=== PATIENT | female | born 1980 | race African-American/Black ===

== ENCOUNTER 2019-08-29 16:07 | Emergency (ER) | payer SELFPAY ==
[2019-08-29] MEDS ORDERED: METOCLOPRAMIDE HCL INJ/PF 10 MG/2 ML SDV IV ONE ×2 (16:46→22:04)
[2019-08-29] MEDS ORDERED: NORMAL SALINE 1000 ML 1,000 ML IV ONE (16:49)
--- NOTE | 2019-08-29 16:49 | ER Document Report ---
ED Medical Screen (RME) - General Chief Complaint: Sickle Cell Crisis Stated Complaint: SICKLE CELL CRISIS Time Seen by Provider: 08/29/19 16:40 Mode of Arrival: Wheelchair Information source: Patient Notes: 39-year-old female with history of sickle cell reports emergency department with complaints of body aches nausea vomiting diarrhea chest pain left-sided flank pain hematuria for the last 3 days. Reports she just moved here from [place]. Patient does not have a primary care provider here in [place]. Reports last sickle cell crisis was last year. Patient reports that she is very difficult to obtain labs from. Does not have a port because she has so many blood infections. Patient is allergic to Zofran. I have greeted and performed a rapid initial assessment of this patient. A comprehensive ED assessment and evaluation of the patient, analysis of test results and completion of the medical decision making process will be conducted by additional ED providers. Dictation of this chart was performed using voice recognition software; therefore, there may be some unintended grammatical errors. - Related Data Allergies/Adverse Reactions: amoxicillin Allergy (Verified 08/29/19 16:40) NSAIDS (Non-Steroidal Anti-Inflamma Allergy (Verified 08/29/19 16:40) ondansetron [From Zofran] Allergy (Verified 08/29/19 16:40) Penicillins Allergy (Verified 08/29/19 16:40) Physical Exam - Vital signs Vitals: Temp Pulse Resp BP Pulse Ox 98.2 F 108 H 22 H 142/99 H 100 08/29/19 16:21 08/29/19 16:21 08/29/19 16:21 08/29/19 16:21 08/29/19 16:21 Course - Vital Signs Vital signs: Temp Pulse Resp BP Pulse Ox 98.2 F 108 H 22 H 142/99 H 100 08/29/19 16:21 08/29/19 16:21 08/29/19 16:21 08/29/19 16:21 08/29/19 16:21
--- NOTE | 2019-08-29 17:17 | RADIOLOGY REPORT (SQ) ---
EXAM DESCRIPTION: CHEST 2 VIEWS COMPLETED DATE/TIME: 08/29/2019 5:08 pm REASON FOR STUDY: chest pain COMPARISON: None. EXAM PARAMETERS: NUMBER OF VIEWS: two views TECHNIQUE: Digital Frontal and Lateral radiographic views of the chest acquired. RADIATION DOSE: NA LIMITATIONS: none FINDINGS: LUNGS AND PLEURA: No opacities, masses or pneumothorax. No pleural effusion. MEDIASTINUM AND HILAR STRUCTURES: No masses or contour abnormalities. HEART AND VASCULAR STRUCTURES: Heart normal size. No evidence for failure. BONES: No acute findings. HARDWARE: None in the chest. OTHER: No other significant finding. IMPRESSION: NO ACUTE RADIOGRAPHIC FINDING IN THE CHEST. TECHNICAL DOCUMENTATION: JOB ID: [id number] [employer]- All Rights Reserved Reading location - IP/workstation name: [email or web address]
--- NOTE | 2019-08-29 19:02 | EKG REPORT ---
SEVERITY:- ABNORMAL ECG - SINUS TACHYCARDIA PROBABLE LEFT ATRIAL ABNORMALITY LEFT VENTRICULAR HYPERTROPHY : Confirmed by: Bruce Villar MD 29-Aug-2019 19:01:49
--- NOTE | 2019-08-29 20:16 | ER Document Report ---
ED General Pain - General Chief Complaint: Abdominal Pain Stated Complaint: SICKLE CELL CRISIS Time Seen by Provider: 08/29/19 20:16 Mode of Arrival: Wheelchair Information source: Patient Notes: HISTORY OF PRESENT ILLNESS: Patient is a 39-year-old female with a past medical history of sickle cell disease who presents with abdominal pain as well as full body pain and sickle cell crisis that began last week. Patient reports her abdominal pain is throughout the mid and lower abdomen, somewhat worse on the left side versus right, does report that she had some loose stools earlier today. She also reports that her diffuse body aches and pains are identical to her previous sickle cell disease. She denies chest pain or shortness of breath, no fevers or chills, no cough or congestion. Of note, the patient reports that she takes hydrocodone at home for pain control. Location: Mid and lower abdomen Onset: Last week Alleviation: None Provocation: Movement Quality: Aching, cramping Radiation: Generalized Severity: Severe at worst Timing: Constant History of abdominal surgery: Appendectomy Associated symptoms: None Last bowel movement: Today and looser than normal REVIEW OF SYSTEMS: CONSTITUTIONAL : Denies fever or chills, no sweats. Denies recent illness. EENT: Denies eye, ear, throat, or mouth pain or symptoms. Denies nasal or sinus congestion. CARDIOVASCULAR: Denies chest pain. Denies swelling of the legs. RESPIRATORY: Denies cough, cold, or chest congestion. Denies shortness of breath or difficulty breathing. Denies wheezing. GASTROINTESTINAL: Positive for abdominal pain. Positive for nausea and vomiting but no diarrhea. Denies constipation. GENITOURINARY: Denies difficulty urinating, painful urination, burning, frequency, or blood in urine. FEMALE GENITOURINARY: Denies vaginal bleeding, abnormal or irregular periods. MUSCULOSKELETAL: Positive for diffuse and generalized body aches and pains. SKIN: Denies rash or skin lesions. HEMATOLOGIC : Denies easy bruising or bleeding. LYMPHATIC: Denies swollen, enlarged glands. NEUROLOGICAL: Denies altered mental status or loss of consciousness. Denies headache. Denies weakness or paralysis or loss of use of either side. Denies problems with gait or speech. Denies sensory or motor loss. PSYCHIATRIC: Denies anxiety or stress or depression. All other systems reviewed and negative. PHYSICAL EXAMINATION: GENERAL: Obese, uncomfortable-appearing, well-nourished and in mild acute distress. HEAD: Atraumatic, normocephalic. No scalp deformity, depression, or crepitance. EYES: Pupils are 3 mm and equal/round/reactive to light, extraocular movements intact, sclera anicteric, conjunctiva are normal. ENT: Nares patent bilaterally, oropharynx. Moist mucous membranes. No tonsil hypertrophy. NECK: Normal range of motion, supple without lymphadenopathy. LUNGS: Breath sounds present, equal, and clear to auscultation bilaterally. No wheezes, rales, or rhonchi. HEART: Tachycardia, normal rhythm without murmurs, rubs, or gallops. 2+ peripheral pulses. Normal capillary refill. ABDOMEN: Soft, moderate diffuse tenderness, nondistended. Normoactive bowel sounds. No guarding, no rebound. No masses appreciated. BACK: Normal contour, no midline tenderness. Rectal exam deferred. GENITAL/PELVIC: Deferred. EXTREMITIES: Normal range of motion, no pitting or edema. No cyanosis. NEUROLOGICAL: No focal neurological deficits. Moves all extremities spontaneously and on command. PSYCH: Upset appearing with anxious mood, normal affect. No suicidal thoughts/ideations. No homicidal thoughts/ideations. No hallucinations. SKIN: Warm, dry, normal turgor, no rashes or lesions noted. ASSESSMENT AND PLAN: This patient is a 39-year-old female who presents with abdominal pain and generalized sickle cell pain crisis. Patient is in mild distress from pain with stable vital signs. Concern for gastritis versus colitis versus gastroenteritis versus sickle cell pain crisis. 1. Will obtain labs, urine, reticulocyte count, CT scan of the abdomen/pelvis, and drug screen. 2. Will give IV fluids with morphine and Reglan and reassess. TRAVEL OUTSIDE OF THE U[place] IN LAST 30 DAYS: No - HPI Onset: Last week Onset/Duration: Gradual Quality of pain: Achy, Cramping, Stabbing Severity: Severe Pain Level: 5 Context: Chronic problem Typical of prior episodes of painful crisis: Yes Genotype: unknown Associated symptoms: Chills, Sweating, Muscle aches Exacerbated by: Movement, Walking Relieved by: Denies Similar symptoms previously: Yes Recently seen / treated by doctor: No - Related Data Allergies/Adverse Reactions: amoxicillin Allergy (Verified 08/29/19 16:40) NSAIDS (Non-Steroidal Anti-Inflamma Allergy (Verified 08/29/19 16:40) ondansetron [From Zofran] Allergy (Verified 08/29/19 16:40) Penicillins Allergy (Verified 08/29/19 16:40) Home Medications: hydroxyuria, iron, vitamin b 12, hydrocodone, xanax, ambien, metoprolol Past Medical History - General Information source: Patient - Social History Smoking Status: Never Smoker Chew tobacco use (# tins/day): No Frequency of alcohol use: Occasional Drug Abuse: None Lives with: Family Family History: Reviewed & Not Pertinent Patient has suicidal ideation: No Patient has homicidal ideation: No - Past Medical History Cardiac Medical History: Reports: None Pulmonary Medical History: Reports: None EENT Medical History: Reports: None Neurological Medical History: Reports: None Endocrine Medical History: Reports: None Renal/ Medical History: Reports: None Malignancy Medical History: Reports: None GI Medical History: Reports: None Musculoskeletal Medical History: Reports None Skin Medical History: Reports None Psychiatric Medical History: Reports: None Traumatic Medical History: Reports: None Infectious Medical History: Reports: None Surgical Hx: Negative Past Surgical History: Reports: None Review of Systems - Review of Systems Constitutional: See HPI, Chills, Malaise, Weakness EENT: No symptoms reported Cardiovascular: No symptoms reported Respiratory: No symptoms reported Gastrointestinal: See HPI, Abdominal pain, Nausea, Vomiting Genitourinary: No symptoms reported Female Genitourinary: No symptoms reported Musculoskeletal: See HPI, Back pain, Joint pain, Muscle pain Skin: No symptoms reported Hematologic/Lymphatic: No symptoms reported Neurological/Psychological: No symptoms reported -: Yes All other systems reviewed and negative Physical Exam - Vital signs Vitals: Temp Pulse Resp BP Pulse Ox 98.2 F 108 H 22 H 142/99 H 100 08/29/19 16:21 08/29/19 16:21 08/29/19 16:21 08/29/19 16:21 08/29/19 16:21 Interpretation: Normal, Tachycardic - General General appearance: Appears well, Alert - HEENT Head: Normocephalic, Atraumatic Eyes: Normal Pupils: PERRL - Respiratory Respiratory status: No respiratory distress Chest status: Nontender Breath sounds: Normal Chest palpation: Normal - Cardiovascular Rhythm: Regular Heart sounds: Normal auscultation Murmur: No - Abdominal Inspection: Normal Distension: No distension Bowel sounds: Normal Tenderness: Nontender Organomegaly: No organomegaly - Back Back: Normal, Nontender - Extremities General upper extremity: Normal inspection, Nontender, Normal color, Normal ROM, Normal temperature General lower extremity: Normal inspection, Nontender, Normal color, Normal ROM, Normal temperature, Normal weight bearing. No: Tonja's sign - Neurological Neuro grossly intact: Yes Cognition: Normal Orientation: AAOx4 [place] Coma Scale Eye Opening: Spontaneous [place] Coma Scale Verbal: Oriented [place] Coma Scale Motor: Obeys Commands [place] Coma Scale Total: 15 Speech: Normal Motor strength normal: LUE, RUE, LLE, RLE Sensory: Normal - Psychological Associated symptoms: Normal affect, Normal mood - Skin Skin Temperature: Warm Skin Moisture: Dry Skin Color: Normal Course - Re-evaluation Re-evalutation: 08/30/19 03:30 Blood work reveals patient has no anemia, does have elevated reticular site count. CT scan shows no acute intra-abdominal pathology and chest x-ray is grossly unremarkable. Patient has been given multiple medications including morphine, Reglan, promethazine, oral oxycodone, and intramuscular Haldol. Patient reports that she still feels pain and is nauseated but is ready to go home. Will discharge the patient home with strict return precautions and follow-up with primary care. All results were explained to and discussed with the patient, and all questions addressed and answered. The patient voices both understanding and agreeing with the plan. - Vital Signs Vital signs: Temp Pulse Resp BP Pulse Ox 98.4 F 108 H 19 141/96 H 100 08/30/19 03:01 08/29/19 16:21 08/30/19 03:01 08/30/19 03:01 08/29/19 16:21 - Laboratory Result Diagrams: 08/29/19 21:00 08/29/19 21:00 Laboratory results interpreted by me: 08/29/19 08/29/19 21:00 21:40 Eos % (Auto) 6.7 H Reticulocyte # 0.141 H Retic Count (auto) 3.38 H Urine Protein 100 H Urine Glucose (UA) 50 H Urine Blood MODERATE H Ur Leukocyte Esterase SMALL H - Diagnostic Test Radiology reviewed: Image reviewed, Reports reviewed Discharge - Discharge Clinical Impression: Sickle cell pain crisis Abdominal pain Qualifiers: Abdominal location: generalized Qualified Code(s): R10.84 - Generalized abdominal pain Condition: Good Disposition: HOME, SELF-CARE Instructions: Abdominal Pain ([facility]) Additional Instructions: You have been evaluated in the Emergency Department for diffuse abdominal pain as well as nausea and muscle aches. While here, you had blood work as well as a CAT scan of your abdomen/pelvis that was normal. You were given multiple medications as well as IV fluids, and it is now safe to be discharged home. Please follow-up with your primary physician as instructed in one week to be rechecked. Return to the Emergency Department if you experience worsening pain, high fevers, difficulty breathing, chest pain, or any other concerning symptoms. Prescriptions: Oxycodone HCl [Oxy-Ir 5 mg Tablet] 5 mg PO Q6HP PRN #30 tab PRN Reason: For Pain Promethazine HCl 12.5 mg PO Q8HP PRN #30 tablet PRN Reason: For Nausea/Vomiting Print Language: Kazakh
[2019-08-29 21:13] LABS: ABSOLUTE BASOPHILS # (AUTO) 0.1 10^3/uL (0.0-0.2); ABSOLUTE EOSINOPHILS # (AUTO) 0.5 10^3/uL (0.0-0.6); ABSOLUTE LYMPHOCYTES (AUTO) 2.2 10^3/uL (0.5-4.7); ABSOLUTE MONOCYTES (AUTO) 0.7 10^3/uL (0.1-1.4); ABSOLUTE NEUT (AUTO) 4.6 10^3/uL (1.7-8.2); ABSOLUTE RETICS # 0.141 10^6/uL (0.028-0.122); EOSINOPHILS % (AUTO) 6.7 % (0-6); HEMATOCRIT 37.8 % (36.0-47.0); HEMOGLOBIN 12.6 g/dL (12.0-15.5); LYMPHOCYTES % (AUTO) 27.2 % (13-45); MEAN CORPUSCULAR HEMOGLOBIN 30.5 pg (27.0-33.4); MEAN CORPUSCULAR HGB CONC 33.4 g/dL (32.0-36.0); MEAN CORPUSCULAR VOLUME 91 fl (80-97); MONOCYTES % (AUTO) 8.5 % (3-13); RED BLOOD COUNT 4.15 10^6/uL (3.72-5.28); RED CELL DISTRIBUTION WIDTH 12.4 % (11.5-14.0); RETICULOCYTE COUNT (AUTO) 3.38 % (0.66-2.85); SEGMENTED NEUTROPHILS % (AUTO) 56.6 % (42-78); TOTAL CELLS COUNTED % (AUTO) 100 %; WHITE BLOOD COUNT 8.2 10^3/uL (4.0-10.5)
[2019-08-29 21:37] LABS: ALBUMIN 3.8 g/dL (3.5-5.0); ALKALINE PHOSPHATASE 121 U/L (38-126); ANION GAP 7 (5-19); ASPARTATE AMINO TRANSFERASE 22 U/L (14-36); BILIRUBIN,DIRECT 0.4 mg/dL (0.0-0.4); BILIRUBIN,TOTAL 0.4 mg/dL (0.2-1.3); BLOOD UREA NITROGEN 14 mg/dL (7-20); CARBON DIOXIDE 26 mmol/L (22-30); CHLORIDE 105 mmol/L (98-107); CREATINE KINASE 37 U/L (30-135); GLUCOSE 89 mg/dL (75-110); POTASSIUM 4.8 mmol/L (3.6-5.0); TOTAL PROTEIN 6.7 g/dL (6.3-8.2)
[2019-08-29 21:40] LABS: PLATELET COUNT 253 10^3/uL (150-450)
[2019-08-29] MEDS ORDERED: MORPHINE SULFATE 10 MG/ML INJ IV ONE (22:04)
[2019-08-29 22:11] LABS: APPEARANCE,URINE CLOUDY; BILIRUBIN,URINE NEGATIVE (NEGATIVE); COLOR,URINE YELLOW; GLUCOSE, URINE 50 mg/dL (NEGATIVE); KETONES,URINE NEGATIVE (NEGATIVE); LEUKOCYTE ESTERASE,URINE SMALL (NEGATIVE); NITRITE,URINE NEGATIVE (NEGATIVE); PROTEIN,URINE 100 mg/dL (NEGATIVE); URINE SPECIFIC GRAVITY 1.014; UROBILINOGEN,URINE NEGATIVE mg/dL (<2.0)
[2019-08-29] MEDS ORDERED: DIPHENHYDRAMINE HCL 50 MG/ML VIAL ONE (22:13)
[2019-08-29] MEDS ORDERED: DIPHENHYDRAMINE HCL 50 MG/ML VIAL IV ONE ×2 (22:15→22:34)
[2019-08-29] MEDS ORDERED: EPINEPHRINE INJ/PF 1 MG/1 ML AMPULE ONE (22:27)
[2019-08-29] MEDS ORDERED: METHYLPREDNISOLONE INJ 125 MG/2 ML SDV ONE (22:28)
[2019-08-29] MEDS ORDERED: FAMOTIDINE INJ/PF 20 MG/2 ML SDV IV ONE ×2 (22:28→22:37)
[2019-08-29] MEDS ORDERED: EPINEPHRINE INJ/PF 1 MG/1 ML AMPULE IM ONE (22:34)
[2019-08-29] MEDS ORDERED: METHYLPREDNISOLONE INJ 125 MG/2 ML SDV IV ONE (22:38)
[2019-08-29] MEDS ORDERED: PROMETHAZINE HCL INJ 50 MG/1 ML VIAL IM ONE (23:55)
[2019-08-29] MEDS ORDERED: PROMETHAZINE HCL INJ 25 MG/1 ML VIAL ONE (23:58)
[2019-08-30] MEDS ORDERED: PROMETHAZINE HCL INJ 50 MG/1 ML VIAL ONE (00:13)
--- NOTE | 2019-08-30 00:19 | RADIOLOGY REPORT (SQ) ---
EXAM DESCRIPTION: CT ABDOMEN PELVIS WITHOUT IV CONTRAST COMPLETED DATE/TME: 08/29/2019 21:03 CLINICAL HISTORY: 39 years, Female, Abdominal pain, SICKLE CELL CRISIS COMPARISON: None. TECHNIQUE: 411 Images stored on PACS. All CT scanners at this facility use dose modulation, iterative reconstruction, and/or weight based dosing when appropriate to reduce radiation dose to as low as reasonably achievable (ALARA). [facility]: Dose Right [facility]: CareDose [facility]: Dose Right [facility]: Teradose 4D [facility]: [employer] LIMITATIONS: None. FINDINGS: The visualized lung bases are unremarkable. Osseous structures are grossly intact. The visualized liver, spleen, adrenal glands, pancreas are unremarkable. Status post cholecystectomy. Kidneys are unremarkable bilaterally. Negative for urinary tract calculus or hydronephrosis. Post surgical changes of the right lower quadrant suggesting prior appendectomy, correlate with history. No gross evidence for bowel obstruction. No free air or free fluid IMPRESSION: No acute intra-abdominal/pelvic process TECHNICAL DOCUMENTATION: Quality ID # [id number]: Final reports with documentation of one or more dose reduction techniques (e.g., Automated exposure control, adjustment of the mA and/or kV according to patient size, use of iterative reconstruction technique) copyright 2010 [employer]- All Rights Reserved
[2019-08-30] MEDS ORDERED: OXYCODONE HCL IR 5 MG TABLET PO ONE (01:07)
[2019-08-30] MEDS ORDERED: HALOPERIDOL LACTATE INJ 5 MG/1 ML VIAL IV ONE (01:59)
[2019-08-30 03:32] VITALS: BP 141/96
== END 2019-08-30 03:43 | disposition home or self-care (01) ==
LOC: ER 16:07
DX: D57.00 Hb-SS disease with crisis, unspecified (principal); R10.84 Generalized abdominal pain; R10.817 Generalized abdominal tenderness; R68.83 Chills (without fever); R61 Generalized hyperhidrosis; R53.1 Weakness; R53.81 Other malaise; M54.9 Dorsalgia, unspecified; M25.50 Pain in unspecified joint; M79.10 Myalgia, unspecified site; R19.4 Change in bowel habit; R11.2 Nausea with vomiting, unspecified; E66.9 Obesity, unspecified; R00.0 Tachycardia, unspecified; Z79.899 Other long term (current) drug therapy; Z79.891 Long term (current) use of opiate analgesic; Z88.8 Allergy status to other drugs, medicaments and biological substances; Z88.0 Allergy status to penicillin; Z90.49 Acquired absence of other specified parts of digestive tract
CPT/HCPCS: 93005; 36415; 82550; 85025; 81025; 85045; 80053; 81001; 84484; 71046; 74176; 93010; J1200; J0171; J2930; J2765; J2270; J7030; S0028; J1630; J2550

== ENCOUNTER 2019-09-29 00:36 | Emergency (ER) | payer SELFPAY ==
[2019-09-29] MEDS ORDERED: ONDANSETRON HCL INJ/PF 4 MG/2 ML SDV IV ONE (03:21)
[2019-09-29] MEDS ORDERED: ONDANSETRON HCL INJ/PF 4 MG/2 ML SDV IM ONE (03:22)
[2019-09-29] MEDS ORDERED: NORMAL SALINE 1000 ML 1,000 ML IV ONE (03:53)
--- NOTE | 2019-09-29 04:12 | ER Document Report ---
ED General - General Chief Complaint: Possible Kidney Stone Stated Complaint: LEFT FLANK PAIN Time Seen by Provider: 09/29/19 03:43 TRAVEL OUTSIDE OF THE [place]. IN LAST 30 DAYS: No - HPI Notes: Patient is a 39-year-old female with a history of sickle cell anemia presents emergency department for evaluation of pain in her left flank, urinary frequency, vomiting. Her symptoms started 4 days ago. Is been progressively worse. She states she has felt fevered at home.. She said nausea with nonbloody, nonbilious emesis. She states that she has had urinary frequency, dysuria. Her pain started in her left lower abdomen and now wraps around to her left flank. She reports 4-5 episodes of emesis in the last 24 hours. She states she is just worried she could be dehydrating herself, which could contrib henrietta to a sickle cell crisis. She also is concerned she could potentially have a kidney stone, although she is never had one in the past. - Related Data Allergies/Adverse Reactions: amoxicillin Allergy (Verified 08/29/19 16:40) NSAIDS (Non-Steroidal Anti-Inflamma Allergy (Verified 08/29/19 16:40) Penicillins Allergy (Verified 08/29/19 16:40) ondansetron [From Zofran] Adverse Reaction (Mild, Verified 09/29/19 03:16) Generalized Itching Home Medications: Hydroxyurea, iron, Vicodin, folic acid Past Medical History - General Information source: Patient - Social History Smoking Status: Never Smoker Frequency of alcohol use: Occasional Family History: Reviewed & Not Pertinent Patient has suicidal ideation: No Patient has homicidal ideation: No - Medical History Medical History: Other - Sickle cell anemia Review of Systems - Review of Systems Constitutional: See HPI EENT: No symptoms reported Cardiovascular: No symptoms reported Respiratory: No symptoms reported Gastrointestinal: See HPI Genitourinary: See HPI Female Genitourinary: No symptoms reported Musculoskeletal: No symptoms reported Skin: No symptoms reported Neurological/Psychological: No symptoms reported Physical Exam - Vital signs Vitals: Temp Pulse Resp BP Pulse Ox 98.1 F 114 H 24 H 137/67 H 99 09/29/19 00:53 09/29/19 00:53 09/29/19 00:53 09/29/19 00:53 09/29/19 00:53 - Notes Notes: Is a 39-year-old female appears her stated age in acute distress. Vital signs reviewed, please refer to chart. Head is normocephalic, atraumatic. Pupils equal round, reactive to light. Neck is supple without meningismus. Heart is regular rate and rhythm. Lungs are clear to auscultation bilaterally. Abdomen is soft, tender throughout the entire left abdomen without rebound or guarding, normoactive bowel sounds throughout. Noted CVA tenderness on the left. Extremities without cyanosis, clubbing. Posterior calves are nontender. Peripheral pulses are equal. Skin is warm and dry. Patient is awake, alert, neurological exam is nonfocal. Course - Re-evaluation Re-evalutation: 09/29/19 04:10 Patient presents emergency department for evaluation. Initially she had laboratory investigations and medications as ordered through the IV. They did have significant difficulty obtaining IV access. IM Zofran ordered, the patient states that she is not truly allergic to this medication. Patient is unable to urinate at this time. We are attempting to obtain IV access. 09/29/19 05:55 IV access was eventually obtained. Patient does have bloody and white blood cells in her urine. she has no significant leukocytosis. We will treat her for urinary tract infection. Given her chronic commitment medical issues, she was given her first dose of IV Cipro here. As the pain is starting to radiate up her flank, we will cover for pyelonephritis with a week of Cipro orally. She was feeling somewhat improved after pain medicine and nausea medicine, although she states that she started having itching later. No visible rashes noted. No shortness of breath. I did give her Benadryl. I will send her home with some Phenergan suppositories and a prescription for Cipro. She is to follow-up with primary care, return to the emergency department with worsening or new concerning symptoms of any sort. - Vital Signs Vital signs: Temp Pulse Resp BP Pulse Ox 98.1 F 114 H 24 H 137/67 H 99 09/29/19 00:53 09/29/19 00:53 09/29/19 00:53 09/29/19 00:53 09/29/19 00:53 - Laboratory Result Diagrams: 09/29/19 04:45 09/29/19 04:45 Laboratory results interpreted by me: 09/29/19 09/29/19 04:24 04:45 Chloride 109 H Carbon Dioxide 20 L BUN 24 H Alkaline Phosphatase 129 H Urine Protein 100 H Urine Blood MODERATE H Discharge - Discharge Clinical Impression: Nausea and vomiting, Urinary tract infection Condition: Stable Disposition: HOME, SELF-CARE Instructions: Intravenous (IV) Fluids ([facility]), Urinary Tract Infection ([facility]), Vomiting ([facility]) Additional Instructions: Rest, stay well-hydrated with small, frequent sips of fluids. Use the Phenergan suppositories as needed for nausea and vomiting. Please take all the antibiotics as prescribed until they are gone. If you develop fevers more than 24 hours from now, vomiting that is uncontrolled, increased pain, or any other new or concerning symptoms, please return immediately to the emergency department for evaluation. Otherwise, follow-up with primary care next week.
[2019-09-29] MEDS ORDERED: PROMETHAZINE HCL INJ 25 MG/1 ML VIAL IM ONE (04:26)
[2019-09-29 05:02] LABS: APPEARANCE,URINE CLOUDY; BILIRUBIN,URINE NEGATIVE (NEGATIVE); COLOR,URINE RED; GLUCOSE, URINE NEGATIVE (NEGATIVE); KETONES,URINE NEGATIVE (NEGATIVE); LEUKOCYTE ESTERASE,URINE NEGATIVE (NEGATIVE); NITRITE,URINE NEGATIVE (NEGATIVE); PROTEIN,URINE 100 mg/dL (NEGATIVE); URINE SPECIFIC GRAVITY 1.024; UROBILINOGEN,URINE NEGATIVE mg/dL (<2.0)
[2019-09-29 05:08] LABS: ALBUMIN 4.4 g/dL (3.5-5.0); ALKALINE PHOSPHATASE 129 U/L (38-126); ANION GAP 11 (5-19); ASPARTATE AMINO TRANSFERASE 28 U/L (14-36); BILIRUBIN,DIRECT 0.2 mg/dL (0.0-0.4); BILIRUBIN,TOTAL 0.4 mg/dL (0.2-1.3); BLOOD UREA NITROGEN 24 mg/dL (7-20); CALCIUM 9.4 mg/dL (8.4-10.2); CARBON DIOXIDE 20 mmol/L (22-30); CHLORIDE 109 mmol/L (98-107); GLUCOSE 95 mg/dL (75-110); POTASSIUM 4.8 mmol/L (3.6-5.0); TOTAL PROTEIN 7.8 g/dL (6.3-8.2)
[2019-09-29 05:19] LABS: ABSOLUTE BASOPHILS # (AUTO) 0.1 10^3/uL (0.0-0.2); ABSOLUTE EOSINOPHILS # (AUTO) 0.2 10^3/uL (0.0-0.6); ABSOLUTE LYMPHOCYTES (AUTO) 1.8 10^3/uL (0.5-4.7); ABSOLUTE MONOCYTES (AUTO) 0.5 10^3/uL (0.1-1.4); ABSOLUTE NEUT (AUTO) 2.7 10^3/uL (1.7-8.2); EOSINOPHILS % (AUTO) 3.9 % (0-6); HEMATOCRIT 39.6 % (36.0-47.0); HEMOGLOBIN 13.5 g/dL (12.0-15.5); LYMPHOCYTES % (AUTO) 34.6 % (13-45); MEAN CORPUSCULAR HGB CONC 34.1 g/dL (32.0-36.0); MEAN CORPUSCULAR VOLUME 88 fl (80-97); MONOCYTES % (AUTO) 10.2 % (3-13); PLATELET COUNT 162 10^3/uL (150-450); RED CELL DISTRIBUTION WIDTH 12.4 % (11.5-14.0); SEGMENTED NEUTROPHILS % (AUTO) 50.3 % (42-78); TOTAL CELLS COUNTED % (AUTO) 100 %; WHITE BLOOD COUNT 5.3 10^3/uL (4.0-10.5)
--- NOTE | 2019-09-29 05:31 | RADIOLOGY REPORT (SQ) ---
CLINICAL HISTORY: left flank pain COMPARISON: None. 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 FINDINGS: Lower lungs are clear. Abdomen: The liver is normal in appearance. There is no biliary dilatation. Cholecystectomy was performed. Cholecystectomy was performed. The pancreas and spleen are normal in appearance. The adrenal glands and kidneys are unremarkable. Abdominal aorta is normal in course and caliber without aneurysm. There is no free air. There is no retroperitoneal adenopathy. Pelvis: There is no bowel obstruction. Urinary bladder is unremarkable. There is no free fluid. Uterus is normal in size. Appendix is not seen. Skeleton: There are no acute osseous findings. No suspicious bony lesions. IMPRESSION: No definite acute process.
[2019-09-29] MEDS ORDERED: CIPROFLOXACIN 400 MG/D5W RTU 400 MG/200 ML RTUPB IV ONE (05:34)
[2019-09-29] MEDS ORDERED: TAMSULOSIN HCL 0.4 MG CAP.SR.24H PO ONE (05:35)
[2019-09-29] MEDS ORDERED: MORPHINE SULFATE 10 MG/ML INJ IV ONE (05:35)
[2019-09-29] MEDS ORDERED: PROMETHAZINE HCL 25 MG SUPP (4 SUPP/ER DISP) PR ONE (05:51)
[2019-09-29] MEDS ORDERED: DIPHENHYDRAMINE HCL 50 MG/ML VIAL IV ONE (05:51)
[2019-09-29] MEDS ORDERED: PROMETHAZINE HCL INJ 50 MG/1 ML VIAL IM STA (07:26)
[2019-09-29] MEDS ORDERED: PROMETHAZINE HCL INJ 50 MG/1 ML VIAL ONE (07:40)
[2019-09-29 08:04] VITALS: BP 142/96
== END 2019-09-29 08:05 | disposition home or self-care (01) ==
LOC: ER 00:36
DX: N39.0 Urinary tract infection, site not specified (principal); R11.2 Nausea with vomiting, unspecified; R10.9 Unspecified abdominal pain; D57.1 Sickle-cell disease without crisis; Z88.0 Allergy status to penicillin
CPT/HCPCS: 99284; 96372; 96375; 96365; 36415; 87086; 83690; 84703; 85025; 87088; 80053; 81001; 87186; 74176; J1200; J3490; J2270; J2550 ×2; J2405; J7030; J0744